=== PATIENT | male | born 1975 | race Caucasian/White ===

== ENCOUNTER 2023-03-04 08:45 | Outpatient (CLI) | payer BC, SELFPAY | END 2023-03-04 08:46 | disposition home or self-care (01) | LOC: NFLDREF 03-08 10:28 | PROVIDERS: PCP Internal Medicine; Referring Provider Internal Medicine; Visit Provider Internal Medicine | DX: Z00.00 Encounter for general adult medical examination without abnormal findings (principal); Z12.5 Encounter for screening for malignant neoplasm of prostate; Z13.6 Encounter for screening for cardiovascular disorders; Z13.9 Encounter for screening, unspecified | CPT/HCPCS: 80053; 80061; 84153 ==